=== PATIENT | female | born 1980 | race Caucasian/White ===

== ENCOUNTER 2022-04-02 12:43 | Emergency (ER) | payer MEDICAID ==
[~2022-04-02] VITALS: Ht 148.6 cm; Wt 57.2 kg
--- NOTE | 2022-04-02 13:07 | NUR ---
pt called at this time, no answer
[2022-04-02 13:15] VITALS: BP 118/78
--- NOTE | 2022-04-02 13:32 | NUR ---
41 y/o female, c/o sore throat and pain with swallowing that radiates to bl ears that started 5 days ago and has worsened for the past few days. denies anyone sick at home with same s/s. denies nausea, vomiting, diarrhea. skin is pink/warm/dry. a&o x4, su[place]ese speaking with even and steady gait. lungs clear bl, heart rate even and regular. pt denies any fever, cp, sob, or cough at this time. pt states pain is 8/10 at this time. vss. patient positioned for comfort. hob elevated. bed down. ermd made aware of pt. pmh: denies nka med: motrin (little relief)
[2022-04-02] MEDS ORDERED: COROTSOL LEFT EAR (13:34)
[2022-04-02] MEDS ORDERED: PHEN177S38 MM (13:35)
--- NOTE | 2022-04-02 14:20 | NUR ---
Patient discharged with v/s stable. Written and verbal after care instructions given and explained. Patient alert, oriented and verbalized understanding of instructions. Ambulatory with steady gait. All questions addressed prior to discharge. ID band removed. Patient advised to follow up with PMD. Rx of CORTISPORIN given. Patient educated on indication of medication including possible reaction and side effects. Opportunity to ask questions provided and answered.
== END 2022-04-02 14:20 | disposition home or self-care (01) ==
LOC: MED 12:43
DX: J02.9 Acute pharyngitis, unspecified (principal); H60.92 Unspecified otitis externa, left ear; Z79.899 Other long term (current) drug therapy
CPT/HCPCS: 99283